=== PATIENT | female | born 1990 | race Caucasian/White ===

== ENCOUNTER 2019-10-02 05:56 | Inpatient (IN) | payer OTHER, SELFPAY ==
[2019-10-02] VITALS (27 sets, daily range): BP systolic 107–138; BP diastolic 57–106; PULSE 72–98; RESP 14–16; TEMP 36.6–37.5; O2SAT 98–100; BMI 26.6
[2019-10-02 06:53] LABS: Basophils Percent Auto 0.3 % (0.2-1.2); Eosinophils Absolute Auto 0.2 K/mm3 (0-0.3); Eosinophils Percent Auto 1.3 % (0-4.4); Hematocrit 34.9 % (37.0-47.0); Hemoglobin 11.5 g/dL (12.0-15.0); Immature Granulocyte Absolute 0.11 K/mm3 (0.00-0.031); Lymphocytes Absolute Auto 2.67 K/mm3 (0.9-3.2); Lymphocytes Percent Auto 23.4 % (18.3-44.2); Mean Corpuscular Hemoglobin 29.3 pg (26-34); Mean Platelet Volume 11.5 fl (7.4-10.4); Monocytes Absolute Auto 0.8 K/mm3 (0.1-0.6); Monocytes Percent Auto 6.7 % (2.6-8.5); Neutrophils Absolute Auto 7.7 K/mm3 (1.3-6.7); Neutrophils Percent Auto 67.3 % (45.5-73.1); Platelet Count Result 242 k/mm3 (150-375); Red Blood Count 3.92 M/mm3 (4.2-5.4); Red Cell Distribution Width 14.3 % (11.5-14.5); White Blood Count 11.4 K/mm3 (4.5-10.0)
[2019-10-02] MEDS: LACTATED RINGERS 1,000 ML 125 ML IV CONT (06:57)
--- NOTE | 2019-10-02 07:10 | LDADM ---
This patient, Regine Gamino, was admitted to Labor/Delivery/Recovery 105 on 10/02/19 at 05:56. Plans for labor, pain management and were discussed with patient. Patient/family oriented to hospital policies and general routines including ID bracelet, bed and alarms, visiting hours, pain management, procedures, bathroom and other care routines, personal items, smoking policy, room service/diet and guest tray routines, infant security routines, and visiting hours. Patient/Family are encouraged to report perceived risks to care and to ask questions if they do not understand what they are told or what they should do. See OBIX for further documentation.
[2019-10-02 07:47] LABS: Rapid Plasma Reagin Non-Reactive (NonReactive)
--- NOTE | 2019-10-02 08:45 | WPDOBADMIT ---
Obstetrics - Admit Note Admission Note: record reviewed. Additions to the history and/or subsequent changes in the physical findings follow. 29 y/o at 40 1/7 weeks here for induction of labor. GBS neg. essentially uncomplicated. AVSS NST reactive TOCO: contractions irregularly ABD soft, nontender, gravid, vertex EXT nontender Cervix 4/50/-2. AROM with meconium-stained fluid. Vertex. A: IUP at term with favorable cervix, desiring induction of labor. Meconium. P: Oxytocin. Anticipate . Nursery aware.
[2019-10-02] MEDS: SODIUM CHLORIDE 0.9% IV 300 ML 600 ML I-UTERINE (09:04)
[2019-10-02] MEDS: ONDANSETRON INJ 4 MG/2 ML VIAL IV PUSH (10:37)
[2019-10-02] MEDS: IBUPROFEN 600 MG TABLET PO ×2 (13:23→20:18)
[2019-10-02] MEDS: BENZOCAINE 20% AER SPR (*SP) 56 GM CAN 1 SPRAY TOPICAL (16:46)
[2019-10-02] MEDS: DOCUSATE SODIUM 100 MG CAPSULE PO (16:46)
--- NOTE | 2019-10-02 19:01 | P.PCNOB_ITS ---
OB - Delivery Note Procedure Delivery date: 10/02/19 Procedure: Induction of labor with . Induction method: AROM and per pitocin protocol Delivery monitor: external FHT, external uterine and internal uterine Route of delivery: Laceration description: None Specimen: Yes (Cord blood, placenta) Estimated blood loss (mL): 85 Anesthesia type: None Disposition: PACU Complications: Shoulder dystocia Narrative: 29 year old 2 para 1001 at 40 1/7 weeks gestation who presented to the hospital for induction of labor. Oxytocin was administered intravenously. Amniotomy was performed with return of meconium-stained fluid. An IUPC was placed and an amnioinfusion was begun. Her labor progressed and her cervix dilated completely. She pushed with good effort and delivered the infant's head to the perineum from a right occiput anterior position. A loose nuchal cord was reduced. At this point a shoulder dystocia was encountered. Fundal pressure and traction were strictly avoided. Gina maneuver was employed. An attempt was made to rotate the posterior shoulder, but this was not effective. The anterior shoulder was then able to be reached and was rotated in a clockwise fashion, dislodging it and effecting delivery of the body. The nose and mouth were bulb suctioned. After a delay, the cord was clamped and cut. The infant was handed off the field. Cord blood was collected. The placenta delivered spontaneously and was grossly normal in appearance. The usual 3 vessel cord was noted. The perineum was intact. The cervix was visualized and was free of laceration. Needle and instrument counts were correct. The patient was taken to recovery room in stable condition. The infant went to the nursery in stable condition. I was present and scrubbed for the entire delivery. Pediatrics was in attendance for the delivery as well. [place] Baby Date of : 10/02/19 Time of : 11:10 Weeks of gestation at delivery: 40 gender: Female Weight (pounds): 8 Weight (ounces): 11 presentation: vertex Placenta delivery description: Spontaneous cord vessel description: 3 Vessels score one minute: 8 score five minutes: 9
[2019-10-03] MEDS: IBUPROFEN 600 MG TABLET PO ×4 (04:35→21:45)
[2019-10-03 05:17] LABS: Hematocrit 31.9 % (37.0-47.0); Hemoglobin 10.6 g/dL (12.0-15.0)
[2019-10-03 07:50] VITALS: BP 114/69; PULSE 79; RESP 16; TEMP 37.5; O2SAT 98
--- NOTE | 2019-10-03 08:10 | PC.NURSE ---
Consulted with patient, mother reports infant may have a tight frenulum. Mother is concerned first child had a tongue tie that was released before discharge. Discussed does keep her tongue back and tongue may be slightly tight, frenulum is not to tip of tongue. Infant can thrust tongue forward. Reviewed newborns will freq hold tongue back and will improve with latching within a few days. Reviewed to assist with deep latch and assist with maintaining deep latch. Mother puts infant to breast in cradle. Suggested to to use cross cradle to assist with latch and maintaining. Demonstrated stimulation techniques to wake for feeding. Assisted with to breast. Reviewed positioning/alignment in cross cradle, holding breast in U hold and guided asymmetrical latch on. was able to latch correctly. Infant nursed eagerly, with steady draws and occasional swallowing noted. Reviewed signs of a correct latch, effective nursing and suck swallow ratio. was able to maintain latch without discomfort to mother. Nipple care reviewed/gel pads and lanolin. Suggested mother hold breast during entire feeding to assist with maintaining latch. Instructed mother to call out for RN assistance if she is unable to latch infant for feeding or she has discomfort with nursing. Instructed feeding should be initiated three hours from start of last feeding or if feeding cues are noted before. Mother voiced understanding of information shared. Reviewed feeding cues, frequencies, duration of feedings, feeding elimination flow sheet, and signs of adequate intake.
[2019-10-03] MEDS: MULTIVIT/MIN/PREN/FOL AC/IRON TABLET 1 TAB PO (09:55)
[2019-10-03] MEDS: DOCUSATE SODIUM 100 MG CAPSULE PO ×2 (09:55→15:40)
--- NOTE | 2019-10-03 12:36 | PM.OBPNVD ---
OB - PN: Subj Subjective Date/time seen: 10/03/19 12:36 Narrative: Pain OK. . OB - PN: Obj Data Labs CBC & Chem 7: 10/03/19 04:36 Labs: Laboratory Results - last 24 hr 10/03/19 04:36 Hgb 10.6 L Hct 31.9 L OB - PN A/P Plan Comments: A: PPD#1, doing well. P: Routine care. Home tomorrow. Exam Narrative: Exam Narrative: AVSS ABD soft, nontender, fundus firm EXT nontender
--- NOTE | 2019-10-03 12:37 | PM.DS ---
DS: Diagnosis Admitting Diagnosis Admitting Diagnosis: IUP at term Discharge Diagnosis (1) Term : Code(s): Z34.90 - Encounter for supervision of normal , unspecified, unspecified trimester Status: Acute (2) (normal spontaneous vaginal delivery): Code(s): O80 - Encounter for full-term uncomplicated delivery Status: Acute DS: Summary Time Spent with Patient Time attestation: Total time spent providing and/or coordinating discharge services: DS: Data Data Completed and Pending Pending studies at discharge: Pending at discharge 10/02/19 12:00 Surgical [PTH] Routine Labs on day of discharge: Labs from last 24 hours 10/03/19 04:36 Hgb 10.6 L Hct 31.9 L Discharge Plan Discharge Attending physician on discharge: Alfredo Enamorado Discharging Clinician: Alfredo Enamorado Patient Disposition: Home, Self-Care Activity: pelvic rest Diet: regular Discharge Instructions: Call or return if temperature above 100.4? F, increased abdominal pain, increased vaginal bleeding or any new problems. Stand Alone Forms: General Discharge Information Follow-up/Referrals: Alfredo Enamorado MD [Physician] - (6 weeks) Discharge Medications: New ibuprofen 600 mg tablet 600 mg PO Q6H PRN (Reason: cramps) Qty: 30 RF: 0 No Action PNV cmb#[id number]-ferrous fumarate-FA [] 28 mg iron- 800 mcg Tablet 1 tablet PO DAILY RF: 0 Date of admission: 10/02/19 05:56 Primary Care Provider: UNKNOWN,DOCTOR Admitting Provider: Alfredo Enamorado Attending physician on admission: Alfredo Enamorado
[2019-10-03 20:35] VITALS: BP 110/69; PULSE 77; RESP 18; TEMP 36.6
[2019-10-03 22:35] VITALS: BP 100/69; PULSE 77; RESP 17; TEMP 36.6
[2019-10-04 08:00] VITALS: BP 118/73; PULSE 76; RESP 18; RESP 20; TEMP 36.6
[2019-10-04] MEDS: IBUPROFEN 600 MG TABLET PO (08:15)
[2019-10-04] MEDS: MULTIVIT/MIN/PREN/FOL AC/IRON TABLET 1 TAB PO (08:15)
[2019-10-04] MEDS: DOCUSATE SODIUM 100 MG CAPSULE PO (08:15)
[2019-10-04] MEDS: WITCH HAZEL 40 PADS 1 PAD TOPICAL (08:16)
[2019-10-04] MEDS: BENZOCAINE 20% AER SPR (*SP) 56 GM CAN 1 SPRAY TOPICAL (08:16)
--- NOTE | 2019-10-04 08:58 | PM.OBPNVD ---
OB - PN: Subj Subjective Date/time seen: 10/04/19 08:58 Narrative: Pain OK. Ready to go home. OB - PN: Obj Data Labs CBC & Chem 7: 10/03/19 04:36 OB - PN A/P Plan Comments: A: PPD#2, doing well. P: Home to f/u 6 weeks. Exam Narrative: Exam Narrative: AVSS ABD soft, nontender, fundus firm EXT nontender
--- NOTE | 2019-10-04 10:00 | PC.NURSE ---
Mother she is able to independently latch infant with appropriate positioning/alignment. Mother has slight tenderness and feels she is able to work with deeper latch due to tight tongue. Mother will contact ENT for evaluation within a few days. She is feeding as required and waking to feed if needed. Infant has had 8 effective feedings in the past 24 hours, and is currently meeting outcomes for weight, output, jaundice and feeding frequencies. Mother states she feels confident to continue effective at home. Reviewed transition to breast milk, signs of adequate intake, and engorgement/relief. Instructed to call ICP if intake/output less than required. Reviewed regular medications mother is taking. Information provided per Lara. Reviewed community resources on the [facility] website and in the Mom/Baby guide. Information on outpatient services provided. Mother has no further questions at this time.
--- NOTE | 2019-10-04 10:08 | PC.NURSE ---
Self care and infant care discharge instructions given including follow up visit date and time. Mother verbalized understanding. No questions or concerns verbalized. Very pleasant and cooperative.
--- NOTE | 2019-10-04 11:30 | PC.NURSE ---
Patient was given the opportunity to view the discharge video Mother & Baby Care, The First Two Weeks and to ask questions. Patient declined viewing the video and has been given the mother/baby guide for home reference.
[2019-10-05 10:20] VITALS: BP 110/65; PULSE 80; RESP 18; TEMP 36.7
== END 2019-10-04 12:04 | disposition home or self-care (01) | DRG 807 ==
LOC: ANHLDR 06:26 → ANHOB2 13:41
PROVIDERS: Admitting Provider Obstetrics & Gynecology; Visit Provider Obstetrics & Gynecology
DX: O69.81X0 Labor and delivery complicated by cord around neck, without compression, not applicable or unspecified (principal); Z37.0 Single live birth; O77.0 Labor and delivery complicated by meconium in amniotic fluid; Z3A.40 40 weeks gestation of pregnancy; Z23 Encounter for immunization; O66.0 Obstructed labor due to shoulder dystocia
CPT/HCPCS: 36415; 85014; 85018; 85025; 86592; 86850; 86900; 86901; 88307; A9270; J2405; J2590; J7030; J7120

== ENCOUNTER 2023-02-16 17:04 | Inpatient (IN) | payer OTHER, SELFPAY ==
[2023-02-16 17:33] VITALS: BMI 29.2
--- NOTE | 2023-02-16 17:34 | LDADM ---
This patient, Regine Gamino, was admitted to Labor/Delivery/Recovery 103 on 02/16/23 at 17:04. Plans for labor, pain management and were discussed with patient. Patient/family oriented to hospital policies and general routines including ID bracelet, bed and alarms, visiting hours, pain management, procedures, bathroom and other care routines, personal items, smoking policy, room service/diet and guest tray routines, security routines, and visiting hours. Patient/Family are encouraged to report perceived risks to care and to ask questions if they do not understand what they are told or what they should do. See OBIX for further documentation.
[2023-02-16] MEDS: DINOPROSTONE 10 MG VAG INSERT VAGINAL (18:24)
[2023-02-16 18:31] VITALS: BP 113/76; PULSE 86; TEMP 36.8
[2023-02-16 18:39] LABS: Basophils Percent Auto 0.4 % (0.2-1.2); Eosinophils Absolute Auto 0.1 K/mm3 (0-0.3); Eosinophils Percent Auto 1.2 % (0-4.4); Hematocrit 33.7 % (37.0-47.0); Hemoglobin 11.2 g/dL (12.0-15.0); Immature Granulocyte Absolute 0.09 K/mm3 (0.00-0.031); Immature Granulocyte Percent A 0.9 % (0-0.5); Lymphocytes Absolute Auto 2.29 K/mm3 (0.9-3.2); Lymphocytes Percent Auto 22.8 % (18.3-44.2); Mean Corpuscular HGB Conc 33.2 g/dl (32-36); Mean Corpuscular Hemoglobin 29.9 pg (26-34); Mean Corpuscular Volume 90.1 fl (80-100); Mean Platelet Volume 11.6 fl (7.4-10.4); Monocytes Absolute Auto 0.8 K/mm3 (0.1-0.6); Monocytes Percent Auto 7.7 % (2.6-8.5); Neutrophils Absolute Auto 6.8 K/mm3 (1.3-6.7); Platelet Count Result 249 k/mm3 (150-375); Red Blood Count 3.74 M/mm3 (4.2-5.4); Red Cell Distribution Width 14.3 % (11.5-14.5); White Blood Count 10.1 K/mm3 (4.5-10.0)
[2023-02-16 22:38] VITALS: BP 120/57; PULSE 89
--- NOTE | 2023-02-16 23:21 | WPDANESEPP ---
Anes - Eval Pre Procedure Procedure: labor epidural Date/Time: 02/16/23 23:21 Surgeon: aditi Preop Diagnosis: pain during labor Pre Op Diagnosis: Induction of Labor Patient Data Age: 32 Gender: F Height: 1.6 m Weight: 75 kg Last Vital Signs Temp 36.8 C 02/16/23 18:31 Pulse 89 02/16/23 22:38 BP 120/57 L 02/16/23 22:38 Allergies Allergy/AdvReac Type Severity Reaction Status Date / Time No Known Allergies Allergy Verified 09/01/19 12:46 Home Medications Medication Instructions Recorded Confirmed Type prenat.vits,kimberly,dqu-[id number]-zsrjr 1 tab PO DAILY 10/04/19 02/16/23 Rx (KPN tablet) Laboratory Tests 02/16/23 17:56 WBC 10.1 H K/mm3 (4.5-10.0) RBC 3.74 L M/mm3 (4.2-5.4) Hgb 11.2 L g/dL (12.0-15.0) Hct 33.7 L % (37.0-47.0) MCV 90.1 fl (80-100) MCH 29.9 pg (26-34) MCHC 33.2 g/dl (32-36) RDW 14.3 % (11.5-14.5) Plt Count 249 k/mm3 (150-375) MPV 11.6 H fl (7.4-10.4) Immature Gran % (Auto) 0.9 H % (0-0.5) Neut % (Auto) 67.0 % (45.5-73.1) Lymph % (Auto) 22.8 % (18.3-44.2) [place] % (Auto) 7.7 % (2.6-8.5) Eos % (Auto) 1.2 % (0-4.4) Baso % (Auto) 0.4 % (0.2-1.2) Lymph # (Auto) 2.29 K/mm3 (0.9-3.2) [place] # (Auto) 0.8 H K/mm3 (0.1-0.6) Eos # (Auto) 0.1 K/mm3 (0-0.3) Baso # (Auto) 0.0 K/mm3 (0.0-0.1) Abs Immat Gran (auto) 0.09 H K/mm3 (0.00-0.031) Absolute Neuts (auto) 6.8 H K/mm3 (1.3-6.7) Absolute Nucleated RBC 0.0 K/mm3 (0.0-0.012) Nucleated RBC % 0.0 % (0.0-0.2) RPR Pending Blood Type A Positive Antibody Screen Negative Patient hx anesthesia problems: none Family hx anesthesia problems: none Results Review: All pre-operative results and documents have been reviewed as part of the pre-operative evaluation. PENDING SALE TO [facility] Family History Family History Mother Family history of hypothyroidism Social History Social History Smoking status: Never smoker Second hand tobacco smoke exposure: No Alcohol intake: current Substance use: never Lack of Transportation: No Lack of Food: Never True Current Housing: I Have Housing Concerned About Future Housing: No Difficulty Paying Gas/Electric Bills: No Difficulty Paying for Meds: No Currently Unemployed: No Education: Master's Degree or Higher Difficulty w/ Childcare or Family Care: No Gender identity (if verbalized by the patient): Female Spiritual care concerns: No Exam Day of Procedure 02/16/23 23:21
[2023-02-17] VITALS (28 sets, daily range): BP systolic 60–131; BP diastolic 33–95; PULSE 63–169; RESP 14–18; TEMP 36.4–37; O2SAT 98–100
[2023-02-17] MEDS: LACTATED RINGERS 1,000 ML 999 ML IV CONT ×2 (00:50→06:01)
[2023-02-17] MEDS: OXYTOCIN 30 UNITS/NS 500 ML 30 UNITS/500 ML BAG IV CONT (06:01)
--- NOTE | 2023-02-17 08:38 | WPDOBADMIT ---
Obstetrics - Admit Note Admission Note: record reviewed. Additions to the history and/or subsequent changes in the physical findings follow. 32 y/o at 39 1/7 weeks here for induction of labor. Cervidil overnight, has been withdrawn. EFW 8.5 lbs. History of shoulder dystocia with prior delivery. GBS neg. AVSS NST reactive TOCO: contractions every 2-4 min ABD soft, nontender, gravid, vertex EXT nontender Cervix 2-3/50/-2. AROM with clear fluid. A: IUP at term. P: Oxytocin. Anticipate . Reviewed possibility of shoulder dystocia and discussed its management.
[2023-02-17 09:02] LABS: Rapid Plasma Reagin Non-Reactive (NonReactive)
[2023-02-17] MEDS: ONDANSETRON INJ 4 MG/2 ML VIAL IV PUSH (11:11)
--- NOTE | 2023-02-17 11:48 | PC.NURSE ---
1053 - Introductions were made and mother shared how she would like to feed her baby with exclusive along with her past experience. Mother is concerned with this being born with a tied tongue like the last two. Mother states getting the tongue clipped in the hospital was easier and better, than having to wait until after discharge to have it done. Offered support if needed to make calls and connections. Encouraged mother to place [id number] until the first feeding if infant is stable and to wait on the weight. 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 Patient has great support. Resources provided with educational trifold for bonding and feeding infant. Parents voiced understanding of information and to call if there is a request for assistance.
--- NOTE | 2023-02-17 13:16 | P.PCNOB_ITS ---
OB - Delivery Note Procedure Delivery date: 02/17/23 Procedure: Induction of labor with Induction method: Per Cervidil Protocol Delivery augmentation: Rupture of Membranes and Pitocin Delivery monitor: External FHT and External Uterine Route of delivery: Laceration Description: None Specimen: Yes (Cord blood) Quantitative Blood Loss (ml): 220 Anesthesia type: None Disposition: PACU Complications: None Narrative: 32 y/o at 39 1/7 weeks gestation who presented to the hospital for induction of labor. Cervidil was placed overnight, then withdrawn the following morning. Oxytocin was administered intravenously. Amniotomy was performed with return of clear fluid. Her labor progressed and her cervix dilated completely. She pushed with good effort and delivered the infant's head to the perineum. A loose nuchal cord was reduced and the body delivered. The nose and mouth were bulb suctioned. After a delay, the cord was clamped and cut. The infant was handed off the field. Cord blood was collected. The placenta delivered spontaneously and was grossly normal in appearance. The usual 3 vessel cord was noted. There were no lacerations. Needle and instrument counts were correct. The patient was taken to recovery room in stable condition. The went to the nursery in stable condition. I was present and scrubbed for the entire [facility]. [place] Baby Date of : 02/17/23 Time of : 12:58 Weeks of gestation at delivery: 39 Infant gender: Female Weight (pounds): 8 Weight (ounces): 9 presentation: vertex position: Left Occiput Anterior Placenta delivery description: Spontaneous and Normal Configuration Cord Vessel Description: 3 Vessels, Nuchal Cord and Delayed Cord Clamping score one minute: 8 score five minutes: 9
--- NOTE | 2023-02-17 13:17 | P.DS_ITS ---
DS: Admitting Diagnosis Discharge Date 02/18/23 Admitting Diagnosis IUP at 39 1/7 weeks DS: Discharge Diagnosis Discharge Diagnosis (1) (normal spontaneous vaginal delivery): Code(s): O80 - Encounter for full-term uncomplicated delivery Status: Acute OB - DS: Summary OB Procedures : None OB Procedures Intrapartum: Spontaneous Vag Delivery OB Procedures: : None Time Spent with Patient Time attestation: Total time spent providing and/or coordinating discharge services: DS: Data Data Completed and Pending Labs on day of discharge: Labs from last 24 hours 02/16/23 17:56 WBC 10.1 H RBC 3.74 L Hgb 11.2 L Hct 33.7 L MCV 90.1 MCH 29.9 MCHC 33.2 RDW 14.3 Plt Count 249 MPV 11.6 H Immature Gran % (Auto) 0.9 H Neut % (Auto) 67.0 Lymph % (Auto) 22.8 [place] % (Auto) 7.7 Eos % (Auto) 1.2 Baso % (Auto) 0.4 Lymph # (Auto) 2.29 [place] # (Auto) 0.8 H Eos # (Auto) 0.1 Baso # (Auto) 0.0 Abs Immat Gran (auto) 0.09 H Absolute Neuts (auto) 6.8 H Absolute Nucleated RBC 0.0 Nucleated RBC % 0.0 RPR Non-reactive Blood Type A Positive Antibody Screen Negative Discharge Plan Discharge Attending physician on discharge: Alfredo Enamorado Discharging Clinician: Alfredo Enamorado Patient Disposition: Home, Self-Care Activity: pelvic rest Diet: regular Discharge Instructions: Call or return if temperature above 100.4? F, increased abdominal pain, increased vaginal bleeding or any new problems. Stand Alone Forms: General Discharge Information Follow-up/Referrals: Alfredo Enamorado MD [Physician] - 6 Weeks Discharge Medications: New ibuprofen 600 mg tablet 600 mg PO Q6H PRN (Reason: cramps) Qty: 30 0RF ferrous sulfate 325 mg (65 mg iron) tablet 325 mg PO DAILY Qty: 30 0RF Continued KPN Tablet 1 tab PO DAILY 0RF Date of admission: 02/16/23 17:04 Primary Care Provider: GelacioShanna Admitting Provider: Alfredo Enamorado Attending physician on admission: Alfredo Enamorado Condition: Stable
[2023-02-17] MEDS: OXYTOCIN 30 UNITS/NS 500 ML 30 UNITS/500 ML BAG 125 UNITS IV CONT (13:33)
[2023-02-17] MEDS: IBUPROFEN 600 MG TABLET PO (15:57)
[2023-02-17] MEDS: METHYLERGONOVINE MALEATE 0.2 MG/ML VIAL IM (16:23)
[2023-02-17] MEDS: ACETAMINOPHEN 325 MG TABLET 650 MG PO (21:27)
[2023-02-18] MEDS: IBUPROFEN 600 MG TABLET PO ×2 (03:35→10:28)
[2023-02-18 03:55] VITALS: BP 106/62; PULSE 84; RESP 18; TEMP 36.6
[2023-02-18 05:11] LABS: Hematocrit 30.1 % (37.0-47.0); Hemoglobin 9.5 g/dL (12.0-15.0)
[2023-02-18 07:55] VITALS: BP 105/66; PULSE 68; RESP 16; TEMP 37.1; O2SAT 99
[2023-02-18 08:00] VITALS: PULSE 68; RESP 16; O2SAT 99
[2023-02-18] MEDS: MULTIVIT/MIN/PREN/FOL AC/IRON TABLET 1 TAB PO (10:27)
[2023-02-18] MEDS: DOCUSATE SODIUM 100 MG CAPSULE PO (10:27)
[2023-02-18] MEDS: POLYSACCHARIDE IRON COMPLEX 150 MG CAPSULE PO (10:27)
[2023-02-18 12:28] VITALS: BP 95/62; PULSE 74; RESP 18; TEMP 36.7; O2SAT 99
--- NOTE | 2023-02-18 13:12 | PM.OBPNVD ---
OB - PN: Subj Subjective Date/time seen: 02/18/23 13:12 Narrative: Pain OK. Would like to go home. OB - PN: Obj Data Labs 02/18/23 03:34 Labs: Laboratory Results - last 24 hr 02/18/23 03:34 Hgb 9.5 L Hct 30.1 L OB - PN A/P Plan Comments: A: PPD#1, doing well. P: Home to f/u 6 weeks. Exam Psych: Other: AVSS ABD soft, nontender, fundus firm EXT nontender
[2023-02-19 09:38] VITALS: BP 102/70; PULSE 74; RESP 18; TEMP 36.8; O2SAT 98
== END 2023-02-18 16:40 | disposition home or self-care (01) | DRG 807 ==
LOC: ANHLDR 02-17 14:29 → ANHOB2 02-17 15:55
PROVIDERS: Admitting Provider Obstetrics & Gynecology; PCP Physician Assistant; Visit Provider Obstetrics & Gynecology
DX: O69.81X0 Labor and delivery complicated by cord around neck, without compression, not applicable or unspecified (principal); Z37.0 Single live birth; Z3A.39 39 weeks gestation of pregnancy
CPT/HCPCS: 36415; 85014; 85018; 85025; 86592; 86850; 86900; 86901; A9270; J2210; J2405; J2590; J7120

== ENCOUNTER 2023-06-24 08:22 | Outpatient (CLI) | payer OTHER, SELFPAY ==
--- NOTE | ~2023-06-24 | XR_ITS ---
EXAMINATION: XR lg joint inject/asp w image DATE: 06/24/2023 09:13 INDICATION: Left hip osteoarthritis with left hip pain TECHNIQUE: A time-out was performed to verify the patient's name, date of , and procedure to b e performed. The procedure including the risks, benefits, and alternatives was discussed with the pat ient. Risks discussed included bleeding and infection. The patient understood the risks and agreed to proceed. The skin overlying the left hip joint was prepped and draped in usual sterile fashion. An esthetic was administered with 1% lidocaine subcutaneously. A 22 G needle was advanced under fluoros copic guidance into the joint. Injection of 1 mL of Omnipaque 240 confirmed intra-articular position of the needle. Subsequently, injectate consisting of 3 mL of a 2:1 mixture of 0.5% Marcaine: 80 mg/ mL Depo-Medrol for a total dosage of 80 mg Depo-Medrol was instilled. Washout of contrast was seen co nfirming intra-articular administration. The needle was removed and the entry site was cleaned and dr essed. There were no immediate complications. Fluoroscopy exposure time was 0.1 minutes. The total n umber of images was 2. FINDINGS: Real-time fluoroscopy demonstrates the needle in the left hip joint. Patient's pain prior t o procedure:0/10. Patient's pain following the procedure: 0/10. IMPRESSION: 1. Successful left hip joint injection of local anesthetic and steroid. Reviewed, dictated and finalized at location A.
== END 2023-06-24 08:23 | disposition home or self-care (01) ==
PROVIDERS: PCP Physician Assistant; Visit Provider Orthopaedic Surgery
DX: M16.12 Unilateral primary osteoarthritis, left hip (principal)
CPT/HCPCS: 20610; 77002; J1040; Q9966

== ENCOUNTER 2024-04-09 16:53 | Emergency (ER) | payer OTHER, SELFPAY ==
[2024-04-09 17:00] VITALS: BP 100/68; PULSE 86; RESP 16; TEMP 36.8; O2SAT 100
--- NOTE | 2024-04-09 17:10 | ED.GENADULT ---
HPI - General Adult General Chief complaint: Unspecified Stated complaint: Mastitis Time Seen by Provider: 04/09/24 17:08 Source: patient, RN notes reviewed and old records reviewed Mode of arrival: ambulatory Limitations: no limitations History of Present Illness HPI narrative: 34 year old female [facility] with complaints of mastitis to her right breast laterally with pain swelling and warmth noted which started to her right breast this morning patient reports that pain is 8/10 on palpation, 5-6 at rest. Patient reports that she has been using ice to her breast and also has taken some Ibuprofen. Patient reports 2 weeks ago she also had some pain to her right breast and swelling which did resolve and then last week she had discomfort to her left breast area with warmth and swelling. Patient reports that she has had mastitis with her other children when he tries to wean infant. Patient reports that she has began to cut back on nursing her youngest daughter who is 13 months old complaint: mastitis Onset (ago): day(s) (this morning symptoms started) Location: chest (right breast) Severity scale (1-10): 6 Treatments prior to arrival: NSAID and other (cold packs ) Related Data Allergies Allergy/AdvReac Type Severity Reaction Status Date / Time No Known Allergies Allergy Verified 04/09/24 17:12 Review of Systems Review of Systems: CONSTITUTIONAL: Denies fever, chills, or sweats. CARDIOVASCULAR: Denies chest pain, palpitations, or edema. RESPIRATORY: Denies cough or dyspnea. GASTROINTESTINAL: Denies abdominal pain, nausea, vomiting SKIN: Reports redness and swelling with pain and warmth to her right breast starting this morning Patient reports no nipple drainage or fluctuant tissue of breast. MUSCULOSKELETAL: Denies myalgia. NEUROLOGIC: Denies headache, numbness All systems reviewed & are unremarkable except as noted in HPI and below PMFSH Past Medical History Medical History (Updated 04/09/24 @ 17:43 by Thalia Carr NP) Labral tear of left hip joint Mastitis Family History Family History Mother Family history of hypothyroidism Social History Social History Smoking status: Never smoker Second hand tobacco smoke exposure: No Alcohol intake: current Substance use: never Lack of Transportation: No Lack of Food: Never True Current Housing: I Have Housing Concerned About Future Housing: No Difficulty Paying Gas/Electric Bills: No Difficulty Paying for Meds: No Currently Unemployed: No Education: Master's Degree or Higher Difficulty w/ Childcare or Family Care: No Gender identity (if verbalized by the patient): Female Spiritual care concerns: No Comments At time of signature, agree with nursing past medical, surgical, social and family history. There is no relevant family history pertinent to the presenting complaint Exam Narrative: GENERAL: Well-appearing, well-nourished, and in some acute distress related to discomfort HEAD: Normocephalic, atraumatic. EYES: PERRLA and EOMI. ENT: Nares clear, no rhinorrhea or epistaxis. Mucous membranes moist. NECK: Supple. no lymphadenopathy CHEST: Clear to auscultation. No respiratory distress.SAO2 100% on room air HEART: Regular rate and rhythm. No murmur heard. Normal peripheral pulses. ABDOMEN: Soft, nontender, nondistended, normal active bowel sounds. EXTREMITIES: Normal range of motion. No edema. SKIN: Warm, dry. Erythema, tenderness, warmth with increased pain on palpation to right breast,no drainage noted or any fluctuant tissue noted on right lateral breast NEURO: No focal deficits. Alert and oriented x3. Course Course Emergency Course: Patient is aware of diagnosis, understands and agrees to treatment plan. Anticipatory guidance given. Patient agrees to follow-up as directed and is aware of reasons to see
== END 2024-04-09 17:20 | disposition home or self-care (01) ==
PROVIDERS: Emergency Provider Registered Nurse; PCP Obstetrics & Gynecology
DX: N61.0 Mastitis without abscess (principal)
CPT/HCPCS: 99213; G0463

== ENCOUNTER 2024-05-01 08:46 | Outpatient (CLI) | payer OTHER, SELFPAY ==
--- NOTE | ~2024-05-01 | US_ITS ---
EXAMINATION TYPE: US breast RT complete COMPARISON: NONE REASON FOR STUDY: RECURRENT MASTITIS TECHNIQUE: Sonographic evaluation of the right breast was performed. INTERPRETATION: Mildly dilated ducts are noted, evidence of intraductal mass lesion. No other solid mass lesion or cy stic lesion identified. IMPRESSION: Dilated ducts, without evidence of intraductal mass or other mass lesion. BI-RADS CATEGORY: BI-RADS 2: Benign appearance Reviewed, dictated and finalized at location .
== END 2024-05-01 08:47 | disposition home or self-care (01) ==
PROVIDERS: PCP Physician Assistant; Visit Provider Obstetrics & Gynecology
DX: N61.0 Mastitis without abscess (principal)
CPT/HCPCS: 76641; 76642

== ENCOUNTER 2024-12-25 08:33 | Outpatient (CLI) | payer OTHER, SELFPAY ==
--- NOTE | 2024-12-25 | ECG_ITS ---
Test Date: 2024-12-25 08:55:10 Measurements Intervals [place] Rate: 58 P: 42 MO: 170 QRS: 29 QRSD: 79 T: 38 QT: 390 QTc: 383 Interpretive Statements SINUS BRADYCARDIA WITH SINUS ARRHYTHMIA WITHIN NORMAL LIMITS No previous ECG available for comparison Electronically Signed On 12-25-2024 15:38:11 CDT by Kojo Colvin M.D.
--- OUTSIDE RECORDS SUMMARY | 2024-12-25 08:53 | XMS_ITS | Data Portability ---
Author Organization [facility] GUILLERMINALuis Miguel Saleem Address [address] [facility] [place] [address] Care Team Providers Care Pattern Grader Supervisor Name Role Phone MARLENE COOLEY Primary Care Provider STANLEY Friend Supervisor Tank Cleaning Assessment No assessment recorded. Plan of Treatment Reminders Order Date Submit Date Provider Last Modified By Organization Details Last Modified Time Details Appointments ANY 15 2024 04:15P M BRUCE Lowe Not available Not available Not available Lab insulin, serum 2023 024 [facility], [address] [place] [address], [address], 03/23/2024 14:37:15 lipid panel, serum 2023 024 [facility], [address] [place] [address], [place], [address], 03/23/2024 14:37:13 HbA1c (hemoglob in A1c), blood 2023 024 [facility], [address] [place] [address], [place], [address], 03/23/2024 14:37:14 SYLVIE (antinucl ear antibodie s) panel, serum 2023 024 [facility], [address] [place] [address], [place], [address], 03/23/2024 14:37:13 Referral None recorded. Procedures None recorded. Surgeries None recorded. Imaging None recorded. Medication Orders ergocalci ferol (vitamin D2) 1,250 mcg (50,000 unit) capsule 2023 024 [facility] [place], [address] [facility] , [place], [id number], 02/02/2024 10:42:10 Patient TargetsNo targets recorded. Patient Instructions Encounter Date Encounter Id Patient Instructions Last Modified By Organization Details Last Modified Time 10/04/2024 [id number] A healthy lifestyle: care instructions [email or web address] Not available 10/22/2024 10:46:50 Reason for Referral None Reported. Results Created Date Observation Date Name Description Value Unit Range Abnormal Flag Note LastModifiedBy Organization Detail LastModifiedTime 03/22/2003/22/2024 ANTIN UCLEA R AB 9 BY MULTI PLEX see below: COMMEN T Autoa ntibo dy Disea se Assoc iatio n ----- ----- ----- ----- ----- ----- ----- ----- ----- ----- ----- ----- Condi tion Frequ ency ----- ----- ----- ----- - ----- ----- ----- ----- ---- ----- ---- Antin uclea r Antib consuelo, SLE, mixed conne ctive Direc t (SYLVIE- D) tissu e disea ses ----- ----- ----- ----- - ----- ----- ----- ----- ---- ----- ---- dsDNA SLE 40 - 60% ----- ----- ----- ----- - ----- ----- ----- ----- ---- ----- ---- Chrom atin Drug induc ed SLE 90% SLE 48 - 97% ----- ----- ----- ----- - ----- ----- ----- ----- ---- ----- ---- SSA (Ro) SLE 25 - 35% Sjogr en's Syndr ome 40 - 70% Neona chuy Lupus 100% ----- ----- ----- ----- - ----- ----- ----- ----- ---- ----- ---- SSB (La) SLE 10% Sjogr en's Syndr ome 30% ----- ----- ----- ----- - ----- ----- ----- ----- --- ----- ---- Sm (anti -Corby h) SLE 15 - 30% ----- ----- ----- ----- - ----- ----- ----- ----- --- ----- ---- VISITOR SERVICES TECHNICIAN Mixed Conne ctive Tissu e Disea se 95% (U1 nRNP, SLE 30 - 50% anti- ribon ucleo prote in) Polym yosit is and/o r [place] [employer] tomyo sitis 20% ----- ----- ----- ----- - ----- ----- ----- ----- ---- ----- ---- Scl-7 0 (anti DNA Scler oderm a (diff use) 20 - 35% topoi kourtney ase) Crest 13% ----- ----- ----- ----- - ----- ----- ----- ----- ---- ----- ---- Olivia-1 Polym yosit is and/o r [place] [employer] tomyo sitis 20 - 40% ----- ----- ----- ----- - ----- ----- ----- ----- ---- ----- ---- Centr omere B Scler oderm a - Crest varia nt 80% Not Available [facility] [address] [facility], [place], [address], 03/23/2024 14:37:13 03/22/20 24 03/23/2024 ANTIN UCLEA R AB 9 BY MULTI PLEX anti-DNA (ds) Ab qn 3 IU/mL 0-9 Negat byron <5 Equiv ocal 5 - 9 Posit byron >9 Not Available [facility] [address] [facility], [place], [address], 03/23/2024 14:37:13 03/22/20 24 03/23/2024 ANTIN UCLEA R AB 9 BY MULTI PLEX motion graphics designer antibodies <0.2 ai 0.0-0. 9 Not Available [facility] [address] [facility], [place], [address], 03/23/2024 14:37:13 03/22/20 24 03/23/2024 ANTIN UCLEA R AB 9 BY MULTI PLEX faria antibodies <0.2 Not Available [facility] [address] [facility], [place], [address], 03/23/2024 14:37:13 03/22/20 24 03/23/2024 ANTIN UCLEA R AB 9 BY MULTI PLEX antisclerode rma-70 antibodies <0.2 Not Available [facility] [address] [place], [address], 03/23/2024 14:37:13 03/22/20 24 03/23/2024 ANTIN UCLEA R AB 9 BY MULTI PLEX sjogren's anti-ss-A <0.2 Not Available [facility] [address] [facility], [place], [address], 03/23/2024 14:37:13 03/22/20 24 03/23/2024 ANTIN UCLEA R AB 9 BY MULTI PLEX sjogren's anti-ss-B <0.2 Not Available [facility] ([facility]) [address] [place], [address], 03/23/2024 14:37:13 03/22/20 24 03/23/2024 ANTIN UCLEA R AB 9 BY MULTI PLEX antichromati n antibodies <0.2 Not Available [facility] ([facility]) [address] [place], [address], 03/23/2024 14:37:13 03/22/20 24 03/23/2024 ANTIN UCLEA R AB 9 BY MULTI PLEX anti-olivia-1 <0.2 Not Available [facility] ([facility]) [address] [place], [address], 03/23/2024 14:37:13 03/22/20 24 03/23/2024 ANTIN UCLEA R AB 9 BY MULTI PLEX anti-centrom ere B antibodies <0.2 Not Available [facility] [address] [place], [address], 03/23/2024 14:37:13 03/22/20 24 03/23/2024 LIPID PANEL W/ CHOL/ HDL RATIO cholesterol, total 175 mg/dL 100-19 9 Not Available [facility] ([facility]) [address] [place], [address], 03/23/2024 14:37:13 03/22/20 24 03/23/2024 LIPID PANEL W/ CHOL/ HDL RATIO triglyceride s 61 mg/dL 0-149 Not Available [facility] [address] [place], [address], 03/23/2024 14:37:13 03/22/20 24 03/23/2024 LIPID PANEL W/ CHOL/ HDL RATIO HDL cholesterol 39 mg/dL >39 below low normal Not Available [facility] [address] [place], [address], 03/23/2024 14:37:13 03/22/20 24 03/23/2024 LIPID PANEL W/ CHOL/ HDL RATIO VLDL cholesterol kimberly 12 mg/dL 5-40 Not Available [facility] [address] [facility], [place], [address], 03/23/2024 14:37:13 03/22/20 24 03/23/2024 LIPID PANEL W/ CHOL/ HDL RATIO LDL chol calc ([facility]) 124 mg/dL 0-99 above high normal Not Available [facility] [address] [place], [address], 03/23/2024 14:37:13 03/22/20 24 03/23/2024 LIPID PANEL W/ CHOL/ HDL RATIO T. chol/HDL ratio 4.5 ratio 0.0-4. 4 above high normal T. Chol/ HDL Ratio Men Women 1/2 Avg.R isk 3.4 3.3 Avg.R isk 5.0 4.4 2X Avg.R isk 9.6 7.1 3X Avg.R isk 23.4 11.0 Not Available [facility] [address] [place], [address], 03/23/2024 14:37:13 03/22/20 24 03/23/2024 HEMOG LOBIN A1C hemoglobin A1C 5.3 % 4.8-5. 6 Predi abete s: 5.7 - 6.4 Diabe isaiah: >6.4 Glyce gera contr ol for adult s with diabe isaiah: <7.0 Not Available [facility] [address] [place], [address], 03/23/2024 14:37:14 03/22/20 24 03/23/2024 INSUL IN insulin 2.8 uIU/m L 2.6-24 .9 Not Available [facility] [address] [place], [address], 03/23/2024 14:37:14 05/01/20 24 05/01/2024 MAMMO , scree yanick, cheryl al, bilat doreen No observ ation record ed. [address], [place], [address], 05/01/2024 12:48:15 Result Notes None recorded. Problems Name Problem SNOMED Code Status Onset Date Resolution Date Notes Provider Name and Address Organization Details Recorded Time Fatigue 17359216 Active 024 BRUCE Lowe Attn: Accountin g,[address] [facility], [place], [address], [facility] - [facility] 4 00:18:13 Vitamin D deficiency 38972703 Active 024 BRUCE Lowe Attn: Accountin g,[address] [facility], [place], [address], [facility] - [facility] 4 00:18:31 Body mass index 25-29 - overweight 157343603 Active 024 BRUCE Lowe Attn: Accountin g,[address] [facility], [place], [address], [facility] - [facility] 4 00:18:36 Overweight 556953596 Active 025 BRUCE Lowe Attn: Accountin g,[address] [facility], [place], [address], [facility] - [facility] 5 10:46:21 Problem Notes None recorded. Procedures Surgical History None recorded. Imaging Results Imaging Date Name Status LastModified by Organiz ation Details LastModified Time 05/01/2024 MAMMO, screening, digital, bilateral completed [address], [place], [address], 05/01/2024 12:48:15 Procedure Notes None recorded. Medical Equipment None Reported. Allergies No known drug allergies Medications Name Sig Start Date Stop Date Status Note LastModified by Organization Details LastModified Time amoxicillin 500 mg capsule TAKE ONE CAPSULE BY MOUTH BY MOUTH EVERY 6 HOURS FOR 7 DAYS 10/04 completed Not Available Not Available Not Available Mirena 21 mcg/24 hr (up to 8 years) 52 mg intrauterin e device Take by intrauter ine route. active Not Available Not Available No t Available dicloxacill in 500 mg capsule TAKE 1 CAPSULE BY MOUTH EVERY 6 HOURS FOR 10 DAYS active Not Available Not Available No t Available amoxicillin 500 mg tablet TAKE 1 TABLET BY MOUTH EVERY 6 HOURS FOR 7 DAYS DIRECTED 01/31 completed Not Available Not Available Not Available acyclovir 800 mg tablet Take 1 tablet 4 times a day by oral route as needed for 10 days. 2023 active Not Available Not Available Not Avai lable fluoxetine 10 mg capsule TAKE ONE CAPSULE BY MOUTH DAILY active Not Available Not Available No t Available ibuprofen 600 mg tablet TAKE 1 TABLET BY MOUTH EVERY 6 HOURS NEEDED FOR CRAMPS active Not Available Not Available No t Available Vitamin D2 1,250 mcg (50,000 unit) capsule Take 1 capsule every week by oral route. active Not Available Not Available No t Available Vitals Date Recorded Body height Respiratory rate Body mass index (BMI) Body weight Oxygen saturation Oxygen saturation in Arterial blood by Pulse oximetry Heart rate Systolic blood pressure Diastolic blood pressure Provider Name and Address Organization Details Last Updated DateTime 4 161.93 cm 20 /min 28 kg/m2 19387.9 6 g 98 % 98 % 60 /min 126 mm[Hg] 72 mm[Hg] Cheri Moser MA [facility] 4 10:02:34 Date Recorded Systolic blood pressure Diastolic blood pressure Provider Name and Address Organization Details Last Updated DateTime 02/02/2024 100 mm[Hg] 70 mm[Hg] BRUCE Lowe Attn: Accounting,[address] [place], [address], [facility] 02/02/2024 10:42:29 Date Recorded Body height Body mass index (BMI) Body weight Oxygen saturation Oxygen saturation in Arterial blood by Pulse oximetry Heart rate Systolic blood pressure Diastolic blood pressure Provider Name and Address Organization Details Last Updated DateTime 5 161.93 cm 28.5 kg/m2 76631.7 4 g 99 % 99 % 62 /min 100 mm[Hg] 72 mm[Hg] Cheri Moser [facility] 11:27:04 Social History Question Answer Notes LastModified by Organizat ion Details LastModified Time Tobacco Smoking Status Never Smoker Cheri Moser MA null, [place] [facility] 02/01/2024 11:37:28 Do You Have An Advance Directive? Yes Information n ot available 02/01/2024 What Is Your Level Of Alcohol Consumption? Occasional Rare Information not available 10/04/2024 Are You Blind Or Do You Have Difficulty Seeing? No Information n ot available 02/01/2024 What Is Your Level Of Caffeine Consumption? Moderate Information not available 02/01/2024 In The 14 Days Before Symptom Onset, Have You Had Close Contact With A Laboratory-confirm ed COVID-19 While That Case Was Ill? No Information n ot available 02/01/2024 In The 14 Days Before Symptom Onset, Have You Had Close Contact With A Person Who Is Under Investigation For COVID-19 While That Person Was Ill? No Information not available 02/01/2024 Have You Been To An Area Known To Be High Risk For COVID-19? No Information not available 02/01/2024 Are You Currently Employed? Yes Information not available 10/04/2024 Are You Deaf Or Do You Have Serious Difficulty Hearing? No Information not available 02/01/2024 What Type Of Diet Are You Following? REGULAR Information n ot available 02/01/2024 Are There Any Guns Present In Your Home? No Information not available 02/01/2024 What Was The Date Of Your Most Recent Tobacco Screening? 10/04/2024 Information not available 10/04/2024 Do You Use Your Seat Belt Or Car Seat Routinely? Yes Information not available 02/01/2024 Do You Have Smoke And Carbon Monoxide Detectors In Your Home? Yes Information not available 02/01/2024 Do You Use Any Illicit Or Recreational Drugs? No Information not available 10/04/2024 Do You Use Sunscreen Routinely? Yes Information not available 02/01/2024 Has Tobacco Cessation Counseling Been Provided? Yes Information not available 02/01/2024 On What Date Was Tobacco Cessation Counseling Provided? 02/02/2024 Information not available 02/02/2024 Do You Or Have You Ever Used Any Other Forms Of Tobacco Or Nicotine? No Information not available 02/01/2024 Sex: Female Functional Status Question Answer Note LastModified by Organizat ion Details LastModified Time Are you able to care for yourself? Yes Information not available 02/01/2024 What is your exercise level? Occasional Information not available 02/01/2024 Mental Status None recorded. Family History Relationship Description Onset Age of this Age Resolved Age Notes LastModified by Organization Details LastModified Time Mother Malignant neoplasm of ovary tcarterma Not available 2023 10:39:02 Mother Disorder of thyroid gland tcarterma Not available 2023 10:39:13 Brother Harmful pattern of use of alcohol tcarterma Not available 2023 10:39:07 Medical History Condition Response Coronary Artery Disease N Other N High Blood Pressure N Atrial Fibrillation N Kidney or Bladder Problems N Thyroid Problems N GI Problems N Depression N COPD N Blood Clots N Skin Problems N Anemia N Heart Attack (AL) N Anxiety Disorder Y Diabetes N Muscle, Joint, or Bone Problems N Seizures/Epilepsy N Acid Reflux (GERD) N Cancer N Stroke N Asthma N Allergies N High Cholesterol N Hepatitis N Liver Disease N Headaches N Heart Failure N Osteoporosis N Gynecological History Statement/Question Response Menses Monthly N Current Control Method IUD Obstetrics History GPAL:G 3 P 3 0 0 3 Type Value Full Term 3 Induced 0 Spontaneous 0 Premature 0 Living 3 Total 3 Past Encounters Encounter ID Performer Location Encounter Start Date Encounter Closed Date Diagnosis/Indication Diagnosis SNOMED-CT Code Diagnosis ICD10 Code Diagnosis Note [id number] Kojo Kwong MD [facility] [place] [address] [place] [address] 02/02/2024 09:42:15 02/02/2024 10:48:33 Fatigue 02132704 R53.83 pt has had labs ran on her own. no abnormal found. check SYLVIE multiplex panel to evaluate for autoimmune causes for fatigue. Cholesterol screening 27 5600827 Z13.220 fasting lipids due. Diabetes claudia ellitus screening 879432530 Z13.1 a1c screening due Adult heal th examination 579383818 Z00.00 annual wellness completed. fasting labs ordered. Body mass index 25-29 - overweight 680606926 Z68.28 fasting insulin due Vitamin D deficiency 347 [address]302 E55.9 refill vit D weekly supplement . [id number] Kojo Kwong MD [facility] [place] [address] [place] [address] 10/04/2024 11:14:14 10/04/2024 13:16:59 Body mass index 25-29 - overweight 747750398 Z68.28 bmi 28.5 Overweight 518794742 E66 .3 Weight increased 4109252 00 R63.5 at this time patient will work on some dietary modificati ons and continued exercise before we pursue other options like GLP injectable , but certainly that is an option. wegovy or zepbound can be ordered via our office. Compounded options should she decide that would need to come from alternate provider route. Health Concerns Section Related Observation LastModified by Organization Detai ls LastModified Time None Recorded Concern Status LastModified by Organization Details LastModified Time None Recorded Advance Directives Directive Y: Payers Encounter Date Sequence Insurance Name Policy Number Policy Marshall Covered Member ID Marshall Member ID Guarantor Name 02/02/2024 1 [facility] [id number] [id number] Hanny 10/04/2024 1 [facility] [id number] [facility] [id number] [facility] Notes Date Note Type Note Provider Name and Address Organization Details Recorded Time 02/02/2024 text/html FatigueReported bypatient.Quality:con tinuous Severity:normal sleep patterns; normal exercise habits; normal activity;worsening Duration:constant; symptoms lasting over 2 weeks Timing:worse Context:no problems/stress at work or home;symptoms do not improve on weekends/vacations Modifying Factors:no new stressors in life; taking vitamins Associated Symptoms:no drug/alcohol withdrawal; no depression; no anxiety; no sleep disturbances; no snoring; periods of not breathing (apnea) have not been observed; no recent change in weight BRUCE Lowe Attn: Accounting,[address] [facility], [place], [address], [facility] 02/21/2024 00:19:03 10/04/2024 text/html Patient is here to discuss options for weight loss. she eats pretty healthy and exercises routinely . unable to lose further weight after her last child a few years ago. Interested in the options out there and PCP opinion on those. BRUCE Lowe Attn: Accounting,[address] [facility], [place], [address], [facility] 10/22/2024 10:48:16 OBGyn Episode No OBEpisode recorded.
--- OUTSIDE RECORDS SUMMARY | 2024-12-25 08:54 | XMS_ITS | Clinical Summary ---
Author Organization [facility] Address [address] [place] [address] Care Team Providers Care Labeling Machine Operator Name Role Phone Unavailable Primary Care Provider Unavailabl e Medications ergocalciferol (VITAMIN D2) 50,000 unit capsule Take 1 capsule every week by oral route. 12 Capsule 2 02/02/2024 Active acyclovir (ZOVIRAX) 800 mg tablet Take 1 Tablet (800 mg) by mouth 4 times daily as needed for 10 days 40 Tablet 3 07/25/2024 Active Encounters Date Type Department Care Team Description 12/05/2024 External Device Data [facility] Provider, Abstract 11/08/2024 External Device Data [facility] Provider, Abstract 11/08/2024 External Device Data [facility] Provider, Abstract 10/28/2024 External Device Data [facility] Provider, Abstract 10/28/2024 External Device Data [facility] Provider, Abstract 10/25/2024 External Device Data [facility] Provider, Abstract 10/11/2024 External Device Data [facility] Provider, Abstract from Last 3 Months Social History Tobacco Use Types Packs/Day Years Used Date Smoking Tobacco: Never Assessed Comments Unknown Sex and Gender Information Value Date Recorded Sex Assigned at Not on file Legal Sex Female 9:49 AM CDT Gender Identity Not on file Sexual Orientation Not on file Plan of Treatment Health Maintenance Due Date Last Done Comments DTAP/TDAP/TD VACCINES (1 - Tdap) 2008 HEPATITIS B VACCINES (1 of 3 - 19+ 3-dose series) 2008 HPV/Cotest (21-29) 2010 CERVICAL CANCER SCREENING 2019 HPV/Cotest (30-65) 2019 PAP SMEAR 2019 INFLUENZA VACCINE (#1) 2024 HPV VACCINES Aged Out No longer eligi ble based on patient's age to complete this topic Insurance RX [employer] RX Member Subscriber Plan / Payer (Ef fective 2024-Present) Name:Regine Gamino Relation to Subscriber:Self Name:Regine Gamino Subscriber ID:Not on file Payer ID:Not on file Group ID:[id number] Type:RX Commercial Address: [address]
== END 2024-12-25 08:34 | disposition home or self-care (01) ==
LOC: ANHCARD 08:36
PROVIDERS: PCP Physician Assistant; Visit Provider Physician Assistant
DX: R00.1 Bradycardia, unspecified (principal); I49.8 Other specified cardiac arrhythmias
CPT/HCPCS: 93005

== ENCOUNTER 2024-12-27 07:49 | Outpatient (CLI) | payer OTHER, SELFPAY ==
--- NOTE | ~2024-12-27 | US_ITS ---
EXAMINATION: US thyroid DATE: 12/27/2024 08:15 INDICATION: Foreign body sensation TECHNIQUE: Multiple ultrasound images of the thyroid were obtained. COMPARISON: None. FINDINGS: The right thyroid lobe measures 5.1 x 1.6 x 1.2 cm. Within the right lobe of the thyroid gland is a 7 x 6 x 7 mm nodule: Composition -solid or almost completely solid (2) Echogenicity -hyperechoic or isoechoic (1) Shape - wider than tall Margin -ill-defined Echogenic foci - none. = TR3 Mildly suspicious Greater than or equal to 1.5 cm: Follow-up Greater than or equal to 2.5 cm: FNA The left thyroid lobe measures 4.8 x 1.4 x 1.2 cm. The isthmus measures 0.2cm in anterior to posterior dimension. There is otherwise normal echotexture and echogenicity throughout the remainder of the thyroid gland. No additional discrete nodules identified. Normal vascular flow is present. IMPRESSION: TR3 nodule in the right lobe of the thyroid gland measuring 7 mm in greatest dimension. This nodule is mildly suspicious but does not meet the size criteria for follow-up or FNA. While follow-up is not recommended (based on size), it may be performed. Reviewed, dictated and finalized at location A. IMPRESSION: TR3 nodule in the right lobe of the thyroid gland measuring 7 mm in greatest di mension. This nodule is mildly suspicious but does not meet the size criteria for follow -up or FNA. While follow-up is not recommended (based on size), it may be performed.
== END 2024-12-27 07:50 | disposition home or self-care (01) ==
LOC: MICIMG 07:50
PROVIDERS: PCP Physician Assistant; Visit Provider Physician Assistant
DX: R09.A2 Foreign body sensation, throat (principal)
CPT/HCPCS: 76536

== ENCOUNTER 2025-01-02 11:01 | Outpatient (CLI) | payer OTHER, SELFPAY ==
--- OUTSIDE RECORDS SUMMARY | 2025-01-02 11:28 | XMS_ITS | Clinical Summary ---
Author Organization [facility] Address [address] [place] [address] Care Team Providers Care Photoradio Operator Name Role Phone Unavailable Primary Care [...]
--- OUTSIDE RECORDS SUMMARY | 2025-01-02 11:28 | XMS_ITS | Data Portability ---
Author Organization [facility] GUILLERMINALuis Miguel Address [address] [facility] [place] [address] Care Team Providers Care Tool Hardener Name Role Phone MARLENE COOLEY Primary Care Provider STANLEY Friend Engraver Signature Assessment No assessment recorded. Plan of Treatment Reminders Order Date Submit Date Provider Last Modified By Organization Details Last Modified Time Details Appointments None recorded. Lab insulin, serum 2023 024 [facility], [address] [place] [address] [place], [address], 4 14:37:15 lipid panel, serum 2023 024 [facility], [address] [place] [address] 2, [place], [address], 4 14:37:13 HbA1c (hemoglobin A1c), blood 2023 024 [facility], [address] [place] [address] 2, [place], [address], 4 14:37:14 SYLVIE (antinuclea r antibodies) panel, serum 2023 024 [facility], [address] [place] [address] 2, [place], [address], 4 14:37:13 Referral None recorded. Procedures None recorded. Surgeries None recorded. Imaging None recorded. Medication Orders ergocalcife rol (vitamin D2) 1,250 mcg (50,000 unit) capsule 2023 024 [facility] [address], [place], [place], [id number], 4 10:42:10 Patient TargetsNo targets recorded. Patient Instructions Encounter Date Encounter Id Patient Instructions Last Modified By Organization Details Last Modified Time 10/04/2024 [id number] A healthy lifestyle: care instructions [email or web address] Not available 10/22/2024 10:46:50 Reason for Referral None Reported. Results Created Date Observation Date Name Description Value Unit Range Abnormal Flag Note LastModifiedBy Organization Detail LastModifiedTime 03/22/20 24 03/22/2024 ANTIN UCLEA R AB 9 BY MULTI PLEX see below: COMMMIRIAM T Autoa ntibo dy Disea se Assoc iatio n ----- ----- ----- ----- ----- ----- ----- ----- ----- ----- ----- ----- Condi tion Frequ ency ----- ----- ----- ----- - ----- ----- ----- ----- ---- ----- ---- Antin uclea r Antib consuelo, SLE, mixed conne ctive Direc t (SYLVIE- D) gualberto mcclain ----- ----- ----- ----- - ----- ----- [...] ----- ----- ----- ----- --- ----- ---- TERMITE CONTROL SERVICE REPRESENTATIVE Mixed Conne ctive Tissu e Disea se 95% (U1 nRNP, SLE 30 - 50% anti- ribon ucleo prote in) Polym yosit is and/o r Fries tomyo sitis 20% ----- ----- ----- ----- - ----- ----- ----- ----- ---- ----- ---- Scl-7 0 (anti DNA Scler oderm a (diff use) 20 - 35% topoi kourtney ase) Crest 13% ----- ----- ----- ----- - ----- ----- ----- ----- ---- ----- ---- Olivia-1 Polym yosit is and/o r Fries tomyo sitis 20 - 40% ----- ----- ----- ----- - ----- ----- ----- ----- ---- ----- ---- Centr omere B Scler oderm a - Crest varia nt 80% Not Available [facility] ([facility]) [address] [facility], [place], [address], 03/23/2024 14:37:13 03/22/20 24 03/23/2024 ANTIN UCLEA R AB 9 BY MULTI PLEX anti-DNA (ds) Ab qn 3 IU/mL 0-9 Negat byron <5 Equiv ocal 5 - 9 Posit byron >9 Not Available [facility] ([facility]) [address] [facility], [place], [address], 03/23/2024 14:37:13 03/22/20 24 03/23/2024 ANTIN UCLEA R AB 9 BY MULTI PLEX cnc programmer antibodies <0.2 ai 0.0-0. 9 Not Available [facility] ([facility]) [address] [facility], [place], [address], 03/23/2024 14:37:13 03/22/20 24 03/23/2024 ANTIN UCLEA R AB 9 BY MULTI PLEX faria antibodies <0.2 Not Available [facility] ([facility]) [address] [facility], [place], [address], 03/23/2024 14:37:13 03/22/20 24 03/23/2024 ANTIN UCLEA R AB 9 BY MULTI PLEX antisclerode rma-70 antibodies <0.2 Not Available [facility] ([facility]) [address] [facility], [place], [address], 03/23/2024 14:37:13 03/22/20 24 03/23/2024 ANTIN UCLEA R AB 9 BY MULTI PLEX sjogren's anti-ss-A <0.2 Not Available [facility] ([facility]) [address] [facility], [place], [address], 03/23/2024 14:37:13 03/22/20 24 03/23/2024 ANTIN UCLEA R AB 9 BY MULTI PLEX sjogren's anti-ss-B <0.2 Not Available [facility] ([facility]) [address] [facility], [place], [address], 03/23/2024 14:37:13 03/22/20 24 03/23/2024 ANTIN UCLEA R AB 9 BY MULTI PLEX antichromati n antibodies <0.2 Not Available [facility] ([facility]) [address] [facility], [place], [address], 03/23/2024 14:37:13 03/22/20 24 03/23/2024 ANTIN UCLEA R AB 9 BY MULTI PLEX anti-olivia-1 <0.2 Not Available [facility] ([facility]) [address] [facility], [place], [address], 03/23/2024 14:37:13 03/22/20 24 03/23/2024 ANTIN UCLEA R AB 9 BY MULTI PLEX anti-centrom ere B antibodies <0.2 Not Available [facility] ([facility]) [address] [facility], [place], [address], 03/23/2024 14:37:13 03/22/20 24 03/23/2024 LIPID PANEL W/ CHOL/ HDL RATIO cholesterol, total 175 mg/dL 100-19 9 Not Available [facility] ([facility]) [address] [facility], [place], [address], 03/23/2024 14:37:13 03/22/20 24 03/23/2024 LIPID PANEL W/ CHOL/ HDL RATIO triglyceride s 61 mg/dL 0-149 Not Available [facility] ([facility]) [address] [facility], [place], [address], 03/23/2024 14:37:13 03/22/20 24 03/23/2024 LIPID PANEL W/ CHOL/ HDL RATIO HDL cholesterol 39 mg/dL >39 below low normal Not Available [facility] ([facility]) [address] [facility], [place], [address], 03/23/2024 14:37:13 03/22/20 24 03/23/2024 LIPID PANEL W/ CHOL/ HDL RATIO VLDL cholesterol kimberly 12 mg/dL 5-40 Not Available [facility] ([facility]) [address] [place], [address], 03/23/2024 14:37:13 03/22/20 24 03/23/2024 LIPID PANEL W/ CHOL/ HDL RATIO LDL chol calc ([facility]) 124 mg/dL 0-99 above high normal Not Available [facility] ([facility]) [address] [facility], [place], [address], 03/23/2024 14:37:13 03/22/20 24 03/23/2024 LIPID PANEL W/ CHOL/ HDL RATIO T. chol/HDL ratio 4.5 ratio 0.0-4. 4 above high normal T. Chol/ HDL Ratio Men Women 1/2 Avg.R isk 3.4 3.3 Avg.R isk 5.0 4.4 2X Avg.R isk 9.6 7.1 3X Avg.R isk 23.4 11.0 Not Available [facility] ([facility]) [address] [facility], [place], [address], 03/23/2024 14:37:13 03/22/20 24 03/23/2024 HEMOG LOBIN A1C hemoglobin A1C 5.3 % 4.8-5. 6 Predi abete s: 5.7 - 6.4 Diabe isaiah: >6.4 Glyce gera contr ol for adult s with diabe isaiah: <7.0 Not Available [facility] ([facility]) [address] [facility], [place], [address], 03/23/2024 14:37:14 03/22/2003/23/2024 INSUL IN insulin 2.8 uIU/m L 2.6-24 .9 Not Available [facility] ([facility]) [address] [facility], [place], [address], 03/23/2024 14:37:14 12/27/19 25 12/27/2024 TSH+F REE T4 TSH 2.500 uIU/m L 0.450- 4.500 Not Available [facility] ([facility]) [address] [place], [address], 12/27/2024 09:27:52 12/27/19 25 12/27/2024 TSH+F REE T4 T4,free(dire ct) 1.10 NG/dL 0.82-1 .77 Not Available [facility] ([facility]) [address] [place], [address], 12/27/2024 09:27:52 12/27/19 25 12/27/2024 COMP. METAB OLIC PANEL (14) glucose 81 mg/dL 70-99 Not Available [facility] ([facility]) [address] [place], [address], 12/27/2024 09:27:54 12/27/19 25 12/27/2024 COMP. METAB OLIC PANEL (14) BUN 12 mg/dL 6-20 Not Available [facility] ([facility]) [address] [place], [address], 12/27/2024 09:27:54 12/27/19 25 12/27/2024 COMP. METAB OLIC PANEL (14) creatinine 0.75 mg/dL 0.57-1 .00 Not Available [facility] ([facility]) [address] [place], [address], 12/27/2024 09:27:54 12/27/19 25 12/27/2024 COMP. METAB OLIC PANEL (14) eGFR 106 mL/mi n/1.7 3 >59 Not Available [facility] ([facility]) [address] [place], [address], 12/27/2024 09:27:54 12/27/19 25 12/27/2024 COMP. METAB OLIC PANEL (14) BUN/creatini ne ratio 16 9-23 Not Available [facility] ([facility]) [address], [place], [address], 12/27/2024 09:27:54 12/27/19 25 12/27/2024 COMP. METAB OLIC PANEL (14) sodium 139 mmol/ L 134-14 4 Not Available [facility] ([facility]) [address], [place], [address], 12/27/2024 09:27:54 12/27/19 25 12/27/2024 COMP. METAB OLIC PANEL (14) potassium 4.4 mmol/ L 3.5-5. 2 Not Available [facility] ([facility]) [address] [place], [address], 12/27/2024 09:27:54 12/27/19 25 12/27/2024 COMP. METAB OLIC PANEL (14) chloride 103 mmol/ L 96-106 Not Available [facility] ([facility]) [address], [place], [address], 12/27/2024 09:27:54 12/27/19 25 12/27/2024 COMP. METAB OLIC PANEL (14) carbon dioxide, total 20 mmol/ L 20-29 Not Available [facility] ([facility]) [address] [place] [place], [address], 12/27/2024 09:27:54 12/27/19 25 12/27/2024 COMP. METAB OLIC PANEL (14) calcium 9.6 mg/dL 8.7-10 .2 Not Available [facility] ([facility] [address] [place], [address], 12/27/2024 09:27:54 12/27/19 25 12/27/2024 COMP. METAB OLIC PANEL (14) protein, total 7.4 g/dL 6.0-8. 5 Not Available [facility] ([facility]) [address] [facility] [place], [address], 12/27/2024 09:27:54 12/27/19 25 12/27/2024 COMP. METAB OLIC PANEL (14) albumin 4.9 g/dL 3.9-4. 9 Not Available [facility] ([facility]) [address], [place], [address], 12/27/2024 09:27:54 12/27/19 25 12/27/2024 COMP. METAB OLIC PANEL (14) globulin, total 2.5 g/dL 1.5-4. 5 Not Available [facility] ([facility]) [address] [place], [address], 12/27/2024 09:27:54 12/27/19 25 12/27/2024 COMP. METAB OLIC PANEL (14) bilirubin, total 0.4 mg/dL 0.0-1. 2 Not Available [facility] ([facility]) [address] [facility], [place], [address], 12/27/2024 09:27:54 12/27/19 25 12/27/2024 COMP. METAB OLIC PANEL (14) alkaline phosphatase 49 IU/L 44-121 Not Available [facility] ([facility]) [address] [facility], [place], [address], 12/27/2024 09:27:54 12/27/19 25 12/27/2024 COMP. METAB OLIC PANEL (14) AST (SGOT) 17 IU/L 0-40 Not Available [facility] ([facility]) [address] [facility], [place], [address], 12/27/2024 09:27:54 12/27/19 25 12/27/2024 COMP. METAB OLIC PANEL (14) ALT (SGPT) 13 IU/L 0-32 Not Available [facility] ([facility]) [address] [facility], [place], [address], 12/27/2024 09:27:54 12/27/1912/27/2024 MAGNE SIUM magnesium 2.2 mg/dL 1.6-2. 3 Not Available [facility] ([facility]) [address] [facility], [place], [address], 12/27/2024 09:27:55 12/27/19 25 12/27/2024 CBC WITH DIFFE RENTI AL/PL ATELE T WBC 7.0 x10e3 /uL 3.4-10 .8 Not Available [facility] ([facility]) [address] [facility], [place], [address], 12/27/2024 09:27:57 12/27/1912/27/2024 CBC WITH DIFFE RENTI AL/PL ATELE T RBC 4.20 x10e6 /uL 3.77-5 .28 Not Available [facility] ([facility]) [address] [facility], [place], [address], 12/27/2024 09:27:57 12/27/19 25 12/27/2024 CBC WITH DIFFE RENTI AL/PL ATELE T hemoglobin 13.6 g/dL 11.1-1 5.9 Not Available [facility] ([facility]) [address] [facility], [place], [address], 12/27/2024 09:27:57 12/27/1912/27/2024 CBC WITH DIFFE RENTI AL/PL ATELE T hematocrit 40.0 % 34.0-4 6.6 Not Available [facility] ([facility]) [address] [facility], [place], [address], 12/27/2024 09:27:57 12/27/1912/27/2024 CBC WITH DIFFE RENTI AL/PL ATELE T MCV 95 fL 79-97 Not Available [facility] ([facility]) [address] [facility], [place], [address], 12/27/2024 09:27:57 12/27/19 25 12/27/2024 CBC WITH DIFFE RENTI AL/PL ATELE T MCH 32.4 pg 26.6-3 3.0 Not Available [facility] ([facility]) [address] [facility], [place], [address], 12/27/2024 09:27:57 12/27/19 25 12/27/2024 CBC WITH DIFFE RENTI AL/PL ATELE T MCHC 34.0 g/dL 31.5-3 5.7 Not Available [facility] ([facility]) [address] [facility], [place], [address], 12/27/2024 09:27:57 12/27/19 25 12/27/2024 CBC WITH DIFFE RENTI AL/PL ATELE T RDW 12.7 % 11.7-1 5.4 Not Available [facility] ([facility]) [address] [facility], [place], [address], 12/27/2024 09:27:57 12/27/19 25 12/27/2024 CBC WITH DIFFE RENTI AL/PL ATELE T platelets 249 x10e3 /uL 150-45 0 Not Available [facility] ([facility]) [address] [facility], [place], [address], 12/27/2024 09:27:57 12/27/19 25 12/27/2024 CBC WITH DIFFE RENTI AL/PL ATELE T neutrophils 54 % notest ab. Not Available [facility] ([facility]) [address] [place], [address], 12/27/2024 09:27:57 12/27/19 25 12/27/2024 CBC WITH DIFFE RENTI AL/PL ATELE T lymphs 36 % notest ab. Not Available [facility] ([facility]) [address] [place], [address], 12/27/2024 09:27:57 12/27/19 25 12/27/2024 CBC WITH DIFFE RENTI AL/PL ATELE T monocytes 7 % notest ab. Not Available [facility] ([facility]) [address] [facility], [place], [address], 12/27/2024 09:27:57 12/27/19 25 12/27/2024 CBC WITH DIFFE RENTI AL/PL ATELE T eos 3 % notest ab. Not Available [facility] ([facility]) [address] [facility], [place], [address], 12/27/2024 09:27:57 12/27/19 25 12/27/2024 CBC WITH DIFFE RENTI AL/PL ATELE T basos 0 % notest ab. Not Available [facility] ([facility]) [address] [facility], [place], [address], 12/27/2024 09:27:57 12/27/19 25 12/27/2024 CBC WITH DIFFE RENTI AL/PL ATELE T neutrophils (absolute) 3.7 x10e3 /uL 1.4-7. 0 Not Available [facility] ([facility]) [address] [facility], [place], [address], 12/27/2024 09:27:57 12/27/19 25 12/27/2024 CBC WITH DIFFE RENTI AL/PL ATELE T lymphs (absolute) 2.5 x10e3 /uL 0.7-3. 1 Not Available [facility] ([facility]) [address] [place], [address], 12/27/2024 09:27:57 12/27/19 25 12/27/2024 CBC WITH DIFFE RENTI AL/PL ATELE T monocytes(ab solute) 0.5 x10e3 /uL 0.1-0. 9 Not Available [facility] ([facility]) [address] [facility], [place], [address], 12/27/2024 09:27:57 12/27/19 25 12/27/2024 CBC WITH DIFFE RENTI AL/PL ATELE T eos (absolute) 0.2 x10e3 /uL 0.0-0. 4 Not Available [facility] ([facility]) [address] [facility], [place], [address], 12/27/2024 09:27:57 12/27/19 25 12/27/2024 CBC WITH DIFFE RENTI AL/PL ATELE T baso (absolute) 0.0 x10e3 /uL 0.0-0. 2 Not Available [facility] ([facility]) [address] [facility], [place], [address], 12/27/2024 09:27:57 12/27/19 25 12/27/2024 CBC WITH DIFFE RENTI AL/PL ATELE T immature granulocytes 0 % notest ab. Not Available [facility] ([facility]) [address] [facility], [place], [address], 12/27/2024 09:27:57 12/27/19 25 12/27/2024 CBC WITH DIFFE RENTI AL/PL ATELE T immature grans (abs) 0.0 x10e3 /uL 0.0-0. 1 Not Available [facility] ([facility]) [address] [facility], [place], [address], 12/27/2024 09:27:57 05/01/20 24 05/01/2024 MAMMO , scree yanick, digit al, bilat eral No observ ation record ed. [address] [facility], [place], [address], 05/01/2024 12:48:15 12/26/19 25 12/25/2024 elect aurelia shah am, routyanci ne ECG, 12 leads min No observ ation record ed. [address], [place], [address], 12/26/2024 06:56:15 12/29/19 25 12/27/2024 US, thyro id No observ ation record ed. [email or web address] [address], [place], [address], 12/29/2024 10:02:19 Result Notes None recorded. Problems Name Problem SNOMED Code Status Onset Date Resolution Date Notes Provider Name and Address Organization Details Recorded Time Fatigue 01299666 Active 024 BRUCE Lowe Attn: Sindy frye,[address] [place], [address], [facility] 4 00:18:13 Vitamin D deficiency 47545832 Active 024 BRUCE Lowe Attn: Accountpercy g,[address] [place], [address], [facility] - [facility] 4 00:18:31 Overweight 607637270 Active 025 BRUCE Lowe Attn: Nataliepercy frye,[address] [place], [address], [facility] - [facility] 5 10:46:21 Overweight in adulthood with body mass index of 25 or more but less than 30 023249415 Active 025 Cheri Moser MA [facility], [place] - [facility] 5 17:31:14 Problem Notes None recorded. Procedures Surgical History None recorded. Imaging Results Imaging Date Name Status LastModified by [facility] Details LastModified Time 05/01/2024 MAMMO, screening, digital, bilateral completed [address] [facility], [place], [address], 05/01/2024 12:48:15 12/25/2024 electrocardiog isaias, routine ECG, 12 leads min completed [address], [place], [address], 12/26/2024 06:56:15 12/27/2024 US, thyroid completed [email or web address] [address], [place], [address], 12/29/2024 10:02:19 Procedure Notes None recorded. Medical Equipment None Reported. Allergies No known drug allergies Medications Name Sig Start Date Stop Date Status Note LastModified by Organization Details LastModified Time amoxicill in 500 mg capsule TAKE ONE CAPSULE BY MOUTH BY MOUTH EVERY 6 HOURS FOR 7 DAYS 10/04 completed Not Available Not Available Not Available Mirena 21 mcg/24 hr (up to 8 years) 52 mg intrauter ine device Take by intraute rine route. active Not Available Not Available No t Available dicloxaci llin 500 mg capsule TAKE 1 CAPSULE BY MOUTH EVERY 6 HOURS FOR 10 DAYS 12/25 completed Not Available Not Available Not Available amoxicill in 500 mg tablet TAKE 1 TABLET BY MOUTH EVERY 6 HOURS FOR 7 DAYS DIRECTED 01/31 completed Not Available Not Available Not Available acyclovir 800 mg tablet Take 1 tablet 4 times a day by oral route as needed for 10 days. 2023 active Not Available Not Available Not Avai lable fluoxetin e 10 mg capsule Take 1 capsule every day by oral route for 90 days. active Not Available Not Available No t Available ibuprofen 600 mg tablet TAKE 1 TABLET BY MOUTH EVERY 6 HOURS NEEDED FOR CRAMPS active Not Available Not Available No t Available Vitamin D2 1,250 mcg (50,000 unit) capsule Take 1 capsule every week by oral route. active Not Available Not Available No t Available Ozempic 0.25 mg or 0.5 mg (2 mg/3 mL) subcutane ous pen injector Inject 0.5 mg by subcutan eous route. active no known reaction after adminste ring Not Available Not Available Not Available Vitals Date Recorded Body height Respiratory rate Body mass index (BMI) Body weight Oxygen saturation Oxygen saturation in Arterial blood by Pulse oximetry Heart rate Systolic blood pressure Diastolic blood pressure Provider Name and Address Organization Details Last Updated DateTime 4 161.93 cm 20 /min 28 kg/m2 18180.9 6 g 98 % 98 % 60 /min 126 mm[Hg] 72 mm[Hg] Cheri Moser [place] - [facility] 4 10:02:34 Date Recorded Systolic blood pressure Diastolic blood pressure Provider Name and Address Organization Details Last Updated DateTime 02/02/2024 100 mm[Hg] 70 mm[Hg] BRUCE Lowe Attn: Accounting, [place], [address], [facility] 02/02/2024 10:42:29 Date Recorded Body height Body mass index (BMI) Body weight Oxygen saturation Oxygen saturation in Arterial blood by Pulse oximetry Heart rate Systolic blood pressure Diastolic blood pressure Provider Name and Address Organization Details Last Updated DateTime 161.93 cm 28.5 kg/m2 94823.7 4 g 99 % 99 % 62 /min 100 mm[Hg] 72 mm[Hg] Cheri Moser MA [facility] 11:27:04 Date Recorded Body height Body mass index (BMI) Body weight Oxygen saturation Oxygen saturation in Arterial blood by Pulse oximetry Heart rate Systolic blood pressure Diastolic blood pressure Provider Name and Address Organization Details Last Updated DateTime 161.93 cm 27 kg/m2 87458.4 1 g 99 % 99 % 69 /min 116 mm[Hg] 82 mm[Hg] Cheri Moser MA [facility] 17:33:21 Date Recorded Respiratory rate Systolic blood pressure Diastolic blood pressure Provider Name and Address Organization Details Last Updated DateTime 12/25/2024 16 /min 110 mm[Hg] 70 mm[Hg] BRUCE Lowe Attn: Accounting, [address] [place], [address], [facility] 12/25/2024 17:55:10 Social History Question Answer Notes LastModified by Organizat ion Details LastModified Time Tobacco Smoking Status Never Smoker Cheri Moser MA null, [facility] 02/01/2024 11:37:28 Do You Have An Advance Directive? Yes Information n ot available 02/01/2024 Are You Blind Or Do You Have [...] No Information not available 02/01/2024 Are You Deaf Or Do You Have Serious Difficulty Hearing? No Information not available 02/01/2024 What Type Of Diet Are You Following? REGULAR Information n ot available 02/01/2024 Are There Any Guns Present In Your Home? No Information not available 02/01/2024 What Was The Date Of Your Most Recent Tobacco Screening? 12/25/2024 Information not available 12/25/2024 Do You Use Your Seat Belt Or Car Seat Routinely? Yes Information not available 02/01/2024 Do You Have Smoke And Carbon Monoxide Detectors In Your Home? Yes Information not available 02/01/2024 Do You Use Sunscreen Routinely? Yes Information not available 02/01/2024 Has Tobacco Cessation Counseling Been Provided? Yes Information not available 02/01/2024 On What Date Was Tobacco Cessation Counseling Provided? 12/25/2024 Information not available 12/25/2024 Sex: Female Functional Status Question Answer Note LastModified by Organizat ion Details LastModified Time Do you use any illicit or recreational drugs? No Information not available 10/04/2024 Do you or have you ever used any other forms of tobacco or nicotine? No Information not available 02/01/2024 What is your level of alcohol consumption? Occasional rare Information not available 10/04/2024 Are you currently employed? Yes Information not available 10/04/2024 Are you able to care for yourself? Yes Information n ot available 02/01/2024 What is your exercise level? [...] of alcohol tcarterma Not available 2023 10:39:07 Paternal Uncle Hemochromato sis tcarterma Not available 2024 17:30:49 Medical History Condition Response Coronary Artery Disease N Other N High Blood Pressure N Atrial Fibrillation N Kidney or Bladder Problems N Thyroid Problems N GI Problems N Depression N COPD N Blood Clots N Skin Problems N Anemia N Heart Attack ([place]) N Anxiety Disorder Y Diabetes N Muscle, [...] SNOMED-CT Code Diagnosis ICD10 Code Diagnosis Note [id number] Kojo Kwong MD PENDING SALE TO [facility] [address] [place] [address] 02/02/2024 09:42:15 02/02/2024 10:48:33 Fatigue 95867918 R53.83 pt has had labs ran on her own. no abnormal found. check SYLVIE multiplex panel to evaluate for autoimmune causes for fatigue. Cholesterol screening 27 9444896 Z13.220 fasting lipids due. Diabetes m ellitus screening [id number] Z13.1 a1c screening due Adult heal th examination [id number] Z00.00 annual wellness completed. fasting labs ordered. Body mass index 25-29 - overweight [id number] Z68.28 fasting insulin due Vitamin D deficiency [id number] E55.9 refill vit D weekly supplement . [id number] Kojo Kwong MD PENDING SALE TO [facility] [address] [place] [id number] 10/04/2024 11:14:14 10/04/2024 13:16:59 Body mass index 25-29 - overweight [id number] Z68.28 bmi 28.5 Overweight [id number] E66 .3 Weight increased [id number] R63.5 at this time patient will work on some dietary modificati ons and continued exercise before we pursue other options like GLP injectable , but certainly that is an option. wegovy or zepbound can be ordered via our office. Compounded options should she decide that would need to come from alternate provider route. [id number] Kojo Kwong MD PENDING SALE TO [facility] Yeny Zimmerman [address] [place] [address] 12/25/2024 17:03:29 12/25/2024 17:56:09 Overweight in adulthood with body mass index of 25 or more but less than 30 [id number] E66.3 Z68.27 bmi 28.5 Feeling of lump in throat [id number] R09.A2 Alteration in heart rate [id number] R00.9 Health Concerns Section Related Observation LastModified by Organization Detai ls LastModified Time None Recorded Concern Status LastModified by Organization Details LastModified Time None Recorded Advance Directives Directive Y: Payers Encounter Date Sequence Insurance Name Policy Number Policy Marshall Covered Member ID Marshall Member ID Guarantor Name 02/02/[address] [facility] [id number] [facility] [id number] [facility] 10/04/[address] [facility] [id number] [facility] [id number] Regine Hanny Notes Date Note Type Note Provider Name [...] in weight BRUCE Lowe Attn: [address] [place], [address], [facility] 02/21/2024 00:19:03 10/04/2024 text/html Patient is here to discuss options for weight loss. she eats pretty healthy and exercises routinely . unable to lose further weight after her last child a few years ago. Interested in the options out there and PCP opinion on those. BRUCE Lowe Attn: [address] [place], [address], [place] [facility] 10/22/2024 10:48:16 OBGyn Episode No OBEpisode recorded.
== END 2025-01-02 11:02 | disposition home or self-care (01) ==
PROVIDERS: PCP Physician Assistant; Visit Provider Physician Assistant
DX: R00.9 Unspecified abnormalities of heart beat (principal)
CPT/HCPCS: 93242

== ENCOUNTER 2025-04-04 07:58 | Emergency (ER) | payer OTHER, SELFPAY ==
[2025-04-04 08:04] VITALS: BP 114/68; PULSE 88; RESP 14; TEMP 36.7; O2SAT 100
--- NOTE | 2025-04-04 08:30 | ED.GENADULT ---
HPI - General Adult General Chief complaint: Skin/Abscess/Foreign Body Stated complaint: spider bite Time Seen by Provider: 04/04/25 08:16 History of Present Illness HPI narrative: This is a 35-year-old female presenting ED with concerns about a spider bite. Patient says she woke up yesterday with a pain underneath her right arm. She then found a spider next to her bed that she killed and collected. After that she developed a diffuse itchy rash over her chest back abdomen neck. She was seen in urgent care she was treated with Benadryl. She then came today for further evaluation. She did not have any throat swelling, chest pain shortness of breath lightheadedness/syncope or nausea vomiting and diarrhea. No history of allergic reactions. She brought the spider to the hospital. It had been crushed which makes identification difficult. Related Data Allergies Allergy/AdvReac Type Severity Reaction Status Date / Time No Known Allergies Allergy Verified 04/04/25 08:09 Exam Narrative: APPEARANCE: No apparent distress. Head: atraumatic. EYES: EOMI, NOSE: Atraumatic NECK: Trachea midline RESPIRATORY: No increased rate of breathing clear to auscultation CARDIOVASCULAR: RRR, no peripheral edema ABDOMINAL: Non-distended soft nontender MUSCULOSKELETAl: No obvious deformities NEURO: Alert. Moving 4/4 extremities SKIN:: Small 0.5 cm circular lesion without erythema or necrosis in the right upper extremity just past the axilla. Diffuse mildly erythematous rash over the patient's chest abdomen back and neck. PSYCHIATRIC: Normal affect Course Vital Signs Vital signs: Vital Signs Temperature 98.1 F 04/04/25 08:04 Pulse Rate 88 04/04/25 08:04 Respiratory Rate 14 04/04/25 08:04 Blood Pressure 114/68 04/04/25 08:04 Pulse Oximetry 100 04/04/25 08:04 Oxygen Delivery Room Air 04/04/25 08:04 Temperature 98.1 F 04/04/25 08:04 Pulse Rate 88 04/04/25 08:04 Respiratory Rate 14 04/04/25 08:04 Blood Pressure 114/68 04/04/25 08:04 Pulse Oximetry 100 04/04/25 08:04 Oxygen Delivery Room Air 04/04/25 08:04 Medical Decision Making [facility] Narrative Medical decision making narrative: -Course: 35-year-old female presenting with a diffuse rash after a possible spider bite. She does have evidence of spider bite right axilla. It does not appear infected. Does not any necrosis or evidence of abscess this time. She was treated for allergic reaction due to erythematous rash. Screening lab work was obtained which was within acceptable limits. Patient was educated on expected course of a possible brown recluse bite. Patient discharged return precautions. -DDX includes but is not limited to: Allergic reaction, spider bite Vital Signs Vital Signs: Vital Signs Temperature 98.1 F 04/04/25 08:04 Pulse Rate 88 04/04/25 08:04 Respiratory Rate 14 04/04/25 08:04 Blood Pressure 114/68 04/04/25 08:04 Pulse Oximetry 100 04/04/25 08:04 Oxygen Delivery Room Air 04/04/25 08:04 Temperature 98.1 F 04/04/25 08:04 Pulse Rate 88 04/04/25 08:04 Respiratory Rate 14 04/04/25 08:04 Blood Pressure 114/68 04/04/25 08:04 Pulse Oximetry 100 04/04/25 08:04 Oxygen Delivery Room Air 04/04/25 08:04 Lab Data 04/04/25 08:48 04/04/25 08:48 Labs: Lab Results 04/04/25 Range/Units 08:48 WBC 8.1 (4.5-10.0) K/mm3 RBC 4.71 (4.2-5.4) M/mm3 Hgb 15.1 H (12.0-15.0) g/dL Hct 44.4 (37.0-47.0) % MCV 94.3 (80-100) fl MCH 32.1 (26-34) pg MCHC 34.0 (32-36) g/dl RDW 13.2 (11.5-14.5) % Plt Count 214 (150-375) k/mm3 MPV 10.7 H (7.4-10.4) fl Immature Gran % (Auto) 0.2 (0-0.5) % Neut % (Auto) 81.7 H (45.5-73.1) % Lymph % (Auto) 12.5 L (18.3-44.2) % [place] % (Auto) 2.6 (2.6-8.5) % Eos % (Auto) 2.9 (0-4.4) % Baso % (Auto) 0.1 L (0.2-1.2) % Lymph # (Auto) 1.01 (0.9-3.2) K/mm3 [place] # (Auto) 0.2 (0.1-0.6) K/mm3 Eos # (Auto) 0.2 (0-0.3) K/mm3 Baso # (Auto) 0.0 (0.0-0.1) K/mm3 Abs Immat Gran (auto) 0.02 (0.00-0.031) K/mm3 Absolute Neuts (auto) 6.6 (1.3-6.7) K/mm3 Absolute Nucleated RBC 0.000 (0.0-0.012) K/mm3 Nucleated RBC % 0.0 (0.0-0.2) % PT 14.0 (11.1-14.7) Seconds INR 1.1 APTT 27.3 (22.3-36.8) Seconds Sodium 138 (137-145) mmol/L Potassium 4.4 (3.4-5.0) mmol/L Chloride 104 (98-107) mmol/L Carbon Dioxide 26 (22-30) mmol/L Anion Gap 8 (4-12) mmol/L BUN 12 (7-17) mg/dL Creatinine 0.83 (0.7-1.0) mg/dL Estim Creat Clear Calc 71 ml/min Estimated GFR > 60 (59 - ) Glucose 94 (65-110) mg/dL Calcium 9.4 (8.4-10.2) mg/dL Total Bilirubin 1.5 H (0.2-1.3) mg/dL AST 23 (14-36) U/L ALT 14 (6-35) U/L Alkaline Phosphatase 46 (38-126) U/L Total Protein 7.6 (6.3-8.2) g/dL Albumin 4.6 (3.5-5.1) g/dL Discharge Plan Discharge Clinical Impression: Accidental spider bite Patient Disposition: Home Condition: Stable Instructions: Antibiotic Form, Brown Recluse Spider Bite (ED), General Allergic Reaction (ED) Additional Instructions: You were seen in the emergency department for a reaction. This may have been caused by a spider bite. Please use Benadryl and Zyrtec as needed for itching. Please follow-up with your primary care physician and 3-5 days to ensure your wound is healing appropriately. If it starts to become red, painful, black or have purulent discharge please return to the ED for evaluation. Patient Language: Swedish Follow-up/Referrals: Gelacio,SHELBY Otero [Primary Care Provider] -
[2025-04-04 08:55] LABS: Hematocrit 44.4 % (37.0-47.0); Hemoglobin 15.1 g/dL (12.0-15.0); Immature Granulocyte Percent A 0.2 % (0-0.5); Lymphocytes Absolute Auto 1.01 K/mm3 (0.9-3.2); Mean Corpuscular HGB Conc 34.0 g/dl (32-36); Mean Corpuscular Hemoglobin 32.1 pg (26-34); Mean Corpuscular Volume 94.3 fl (80-100); Nucleated Red Blood Cells Absolute Auto 0.000 K/mm3 (0.0-0.012); Nucleated Red Blood Cells Perc 0.0 % (0.0-0.2); Platelet Count Result 214 k/mm3 (150-375); Red Blood Count 4.71 M/mm3 (4.2-5.4); White Blood Count 8.1 K/mm3 (4.5-10.0)
[2025-04-04] MEDS: FAMOTIDINE 20 MG/2 ML VIAL 40 MG IV PUSH (09:05)
[2025-04-04] MEDS: LORATADINE 10 MG TABLET PO (09:05)
[2025-04-04] MEDS: dexAMETHasone SOD PHOS INJ 10 MG/ML 1 ML VIAL IV PUSH (09:05)
[2025-04-04] MEDS: TETANUS,DIPHTHERIA,AC PERTUSSIS ADULT (0.5 ML) BOOSTRIX IM (09:06)
[2025-04-04 09:11] LABS: INR 1.1; Prothrombin Time 14.0 Seconds (11.1-14.7)
[2025-04-04 09:12] LABS: Partial Thromboplastin Time 27.3 Seconds (22.3-36.8)
[2025-04-04 09:14] LABS: Alanine Aminotransferase 14 U/L (6-35); Albumin Level 4.6 g/dL (3.5-5.1); Alkaline Phosphatase 46 U/L (38-126); Anion Gap 8 mmol/L (4-12); Aspartate Amino Transferase 23 U/L (14-36); Bilirubin,Total 1.5 mg/dL (0.2-1.3); Blood Urea Nitrogen 12 mg/dL (7-17); Calcium 9.4 mg/dL (8.4-10.2); Carbon Dioxide 26 mmol/L (22-30); Chloride 104 mmol/L (98-107); Estimated CRCL calculation 71 ml/min; Estimated Glomerular Filt Rate > 60; Glucose 94 mg/dL (65-110); Potassium 4.4 mmol/L (3.4-5.0); Sodium 138 mmol/L (137-145); Total Protein 7.6 g/dL (6.3-8.2)
== END 2025-04-04 09:26 | disposition home or self-care (01) ==
PROVIDERS: Emergency Provider Emergency Medicine; PCP Physician Assistant
DX: T63.301A Toxic effect of unspecified spider venom, accidental (unintentional), initial encounter (principal); Z23 Encounter for immunization
CPT/HCPCS: 36415; 80053; 85025; 85610; 85730; 90471; 90715; 96374; 96375; 99284; A9270; J1100